=== PATIENT | male | born 1945 | race Caucasian/White ===

== ENCOUNTER 2022-10-20 15:22 | Emergency (ER) | payer OTHER, SELFPAY ==
[2022-10-20 15:26] VITALS: BP 148/84; PULSE 107; RESP 18; TEMP 36.4; O2SAT 98; BMI 29.9
--- NOTE | 2022-10-20 15:45 | ECG_ITS ---
[facility] Test Date: 2022-10-20 Pat Name: JUDAH GORDILLO Department: Room: - Gender: Male Charge Nurse: : [id number] Requested By: [id number] Order Number: [id number] Reading MD: COLTON DICKINSON Measurements Intervals [place] Rate: 96 P: 30 [place]: 120 QRS: -14 QRSD: 88 T: 10 QT: 344 QTc: 398 Interpretive Statements 1100 Sinus rhythm 9110 normal ECG No previous ECG available for comparison Electronically Signed On 10-21-2022 7:20:17 EDT by COLTON DICKINSON
[2022-10-20 16:28] LABS: Basophils Absolute Auto 0.1 10^3/uL (0.0-0.1); Basophils Percent Auto 1.3 % (0.2-2.0); Eosinophils Absolute Auto 0.4 10^3/uL (0.0-0.7); Eosinophils Percent Auto 5.6 % (0.9-7.0); Hematocrit 41.6 % (42.0-54.0); Hemoglobin 14.8 g/dL (14.0-18.0); Immature Granulocytes Abs Auto 0.01 10^3/uL (0.00-0.03); Immature Granulocytes Pct Auto 0.1 % (0.0-0.5); Lymphocytes Absolute Auto 1.5 10^3/uL (1.2-3.8); Lymphocytes Percent Auto 20.7 % (20.5-60.0); Mean Corpuscular HGB Conc 35.6 g/dL (29.9-35.2); Mean Corpuscular Volume 92.7 fL (80.0-94.0); Mean Platelet Volume 11.4 fL (9.5-13.5); Monocytes Absolute Auto 0.5 10^3/uL (0.3-0.8); Monocytes Percent Auto 6.8 % (1.7-12.0); Neutrophils Absolute Auto 4.7 10^3/uL (1.4-6.5); Neutrophils Percent Auto 65.5 % (43.0-75.0); Platelet Count 206 10^3/uL (150-450); Red Blood Count 4.49 10^6/uL (4.70-6.10); Red Cell Distribution Width 12.5 % (11.0-15.0); White Blood Count 7.2 10^3/uL (4.0-11.0)
[2022-10-20] MEDS: FAMOTIDINE/PF 20 MG/2 ML VIAL IV (16:28)
[2022-10-20] MEDS: KETOROLAC TROMETHAMINE 30 MG/ML VIAL 15 MG IVP (16:28)
[2022-10-20 16:36] LABS: INR 1.13; Prothrombin Time 11.9 sec (9.0-11.6)
[2022-10-20 16:42] LABS: Albumin Globulin Ratio 0.9; Albumin Level 3.3 g/dL (3.4-5.0); Alkaline Phosphatase 97 U/L (46-116); Anion Gap 14.5; Aspartate Amino Transferase 25 U/L (15-37); BUN Creatinine Ratio 12.2; Bilirubin Total 0.8 mg/dL (0.2-1.0); Calcium 8.2 mg/dL (8.5-10.1); Carbon Dioxide 24.8 mmol/L (21.0-32.0); Chloride 104 mmol/L (98-107); Estimated GFR (African America >60 (>=60); Estimated GFR (Non-African Ame >60 (>=60); Globulin 3.7 g/dL; Glucose 203 mg/dL (74-106); Potassium 3.3 mmol/L (3.5-5.1); Sodium 140 mmol/L (136-145); Troponin I High Sensitivity 8.4 pg/mL (4.0-76.1)
--- NOTE | 2022-10-20 16:47 | ED.GENADUL1 ---
HPI - General Adult General Chief complaint: Abdominal Pain Stated complaint: BACK PAIN W/ NAUSEA Time Seen by Provider: 10/20/22 15:31 Source: patient Mode of arrival: walk-in Limitations: no limitations History of Present Illness HPI narrative: The patient is coming to the ER with a back pain that been going on for the last at least a week, he mentioned that he already presented to another facility in [facility] to be evaluated when he was told he does not have any kidney stone, the patient was discharged home with Percocet and he mentioned that it was helping but he still have pain whenever he is trying to get out of the bed The patient pain is mostly related to movement, he denies any nausea with that right now but he did have some nausea earlier and he also denies any vomiting no chest pain no other complaints Related Data Previous Rx's Medication Instructions Recorded meloxicam 7.5 mg tablet 7.5 mg PO DAILY PRN pain #10 tabs 10/20/22 orphenadrine citrate 100 mg 100 mg PO BID PRN muscle spasm #10 10/20/22 tablet,extended release tabs Allergies Allergy/AdvReac Type Severity Reaction Status Date / Time No Known Drug Allergies Allergy Verified 10/20/22 15:31 Review of Systems ROS Status of ROS 10 or more systems reviewed and unremarkable except as noted in history and below Exam Narrative Exam Narrative: Nurses notes and vital signs reviewed and patient is not hypoxic. General: Well-appearing and in no apparent distress. Skin: Warm, dry, no pallor noted. No rash. Head: Normocephalic, atraumatic. Neck: Supple, non-tender. Eye: Pupils are equal, round and EOMI. No scleral icterus. Ears, Nose, Mouth, and Throat: TM are clear, no nasal mucosal hypertrophy. Oral mucosa is moist, no posterior oropharynx erythema, uvula is mid-line Cardiovascular: Regular Rate and Rhythm without murmur, gallop or rub. Respiratory: No accessory muscle use or respiratory distress. Lungs are clear to auscultation, no wheezing, rales or rhonchi Chest Wall: no tenderness Back: No midline thoracic or lumbar vertebral tenderness. No CVA tenderness Musculoskeletal: normal ROM, no calf or popliteal tenderness, no lower extremity edema/swelling GI: Abdomen is soft, non-distended. Normal bowel sounds. No masses appreciated. No tenderness to palpation. No rebound, guarding, or rigidity noted. Neurological: A&O x4. No cranial nerve dysfunction observed. No truncal ataxia. Moves all extremities. Sensation intact. Psychiatric: Cooperative and interactive. Normal mood and affect. Constitutional Vital Signs, click to edit/add: Last Vital Signs Temp 97.6 F 10/20/22 15:26 Pulse 107 H 10/20/22 15:26 Resp 18 10/20/22 15:26 BP 148/84 H 10/20/22 15:26 Pulse Ox 98 10/20/22 15:26 O2 Del Method Room Air 10/20/22 15:26 Course Vital Signs Vital signs: Vital Signs Temperature 97.6 F 10/20/22 15:26 Pulse Rate 107 H 10/20/22 15:26 Respiratory Rate 18 10/20/22 15:26 Blood Pressure 148/84 H 10/20/22 15:26 Pulse Oximetry 98 10/20/22 15:26 Oxygen Delivery Method Room Air 10/20/22 15:26 Temperature 97.6 F 10/20/22 15:26 Pulse Rate 107 H 10/20/22 15:26 Respiratory Rate 18 10/20/22 15:26 Blood Pressure 148/84 H 10/20/22 15:26 Pulse Oximetry 98 10/20/22 15:26 Oxygen Delivery Method Room Air 10/20/22 15:26 Medical Decision Making 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 The patient agrees with the following Diagnosis and Treatment plan and the patient will be discharged home. Lab Data Labs: Lab Results 10/20/22 Range/Units 15:55 WBC 7.2 (4.0-11.0) 10^3/uL RBC 4.49 L (4.70-6.10) 10^6/uL Hgb 14.8 (14.0-18.0) g/dL Hct 41.6 L (42.0-54.0) % MCV 92.7 (80.0-94.0) fL MCH 33.0 (25.9-34.0) pg MCHC 35.6 H (29.9-35.2) g/dL RDW 12.5 (11.0-15.0) % Plt Count 206 (150-450) 10^3/uL MPV 11.4 (9.5-13.5) fL Neut % (Auto) 65.5 (43.0-75.0) % Lymph % (Auto) 20.7 (20.5-60.0) % [place] % (Auto) 6.8 (1.7-12.0) % Eos % (Auto) 5.6 (0.9-7.0) % Baso % (Auto) 1.3 (0.2-2.0) % Neut # (Auto) 4.7 (1.4-6.5) 10^3/uL Lymph # (Auto) 1.5 (1.2-3.8) 10^3/uL [place] # (Auto) 0.5 (0.3-0.8) 10^3/uL Eos # (Auto) 0.4 (0.0-0.7) 10^3/uL Baso # (Auto) 0.1 (0.0-0.1) 10^3/uL Abs Immat Gran (auto) 0.01 (0.00-0.03) 10^3/uL Imm/Tot Granulo (auto) 0.1 (0.0-0.5) % PT 11.9 H (9.0-11.6) sec INR 1.13 Sodium 140 (136-145) mmol/L Potassium 3.3 L (3.5-5.1) mmol/L Chloride 104 (98-107) mmol/L Carbon Dioxide 24.8 (21.0-32.0) mmol/L Anion Gap 14.5 BUN 14.0 (7.0-18.0) mg/dL Creatinine 1.15 (0.70-1.30) mg/dL Est GFR ( Amer) >60 (>=60) Est GFR (Non-Af Amer) >60 (>=60) BUN/Creatinine Ratio 12.2 Glucose 203 H (74-106) mg/dL Calcium 8.2 L (8.5-10.1) mg/dL Total Bilirubin 0.8 (0.2-1.0) mg/dL AST 25 (15-37) U/L ALT 42 (16-63) U/L Alkaline Phosphatase 97 (46-116) U/L Troponin I High Sens 8.4 (4.0-76.1) pg/mL Total Protein 7.0 (6.4-8.2) g/dL Albumin 3.3 L (3.4-5.0) g/dL Globulin 3.7 g/dL Albumin/Globulin Ratio 0.9 Discharge Plan Discharge Chief Complaint: Abdominal Pain Clinical Impression: Back pain Patient Disposition: Home, Self-Care Time of Disposition Decision: 17:21 Condition: Good Prescriptions / Home Meds: New meloxicam 7.5 mg tablet 7.5 mg PO DAILY PRN (Reason: pain) Qty: 10 0RF orphenadrine citrate 100 mg tablet extended release 100 mg PO BID PRN (Reason: muscle spasm) Qty: 10 0RF Instructions: Acute Low Back Pain (ED) Stand Alone Forms: Portal Instructions Referrals: Physician,Non-Staff, MD [Primary Care Provider] - 1 week Discharge Date/Time: 10/20/22 17:32
[2022-10-20 16:53] LABS: Alanine Aminotransferase 42 U/L (16-63)
== END 2022-10-20 17:32 | disposition home or self-care (01) ==
PROVIDERS: Emergency Provider Emergency Medicine
DX: M54.9 Dorsalgia, unspecified (principal)
CPT/HCPCS: 36415; 80053; 84484; 85025; 85610; 93005; 96374; 96375; 99285